=== PATIENT | female | born 1995 | race Caucasian/White ===

== ENCOUNTER 2016-12-09 11:21 | Emergency (ER) | payer OTHER ==
[2016-12-09 11:32] VITALS: BP 106/62
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
--- NOTE | 2016-12-09 12:48 | RAD ---
INDICATION: Left ankle injury. TECHNIQUE: 2 views of the left ankle were obtained. FINDINGS: The bones are in normal alignment. No fracture is seen. Joint spaces appear maintained. IMPRESSION: NO EVIDENCE FOR FRACTURE.
--- NOTE | 2016-12-09 12:48 | RAD ---
INDICATION: Trauma left knee. TECHNIQUE: 2 views of the left knee were obtained. FINDINGS: The bones are normal alignment. No joint effusion or fracture is seen. Joint spaces appear maintained. IMPRESSION: NO EVIDENCE FOR FRACTURE.
--- NOTE | 2016-12-09 12:50 | RAD ---
INDICATION: Left foot injury. TECHNIQUE: 2 views of the left foot were obtained. FINDINGS: The bones are normal alignment. No fracture is seen. Joint spaces appear maintained. IMPRESSION: NO EVIDENCE FOR FRACTURE.
== END 2016-12-09 13:28 | disposition home or self-care (01) ==
LOC: ED 11:21
DX: M79.605 Pain in left leg (principal); F17.210 Nicotine dependence, cigarettes, uncomplicated; W19.XXXA Unspecified fall, initial encounter; Y92.89 Other specified places as the place of occurrence of the external cause; X50.1XXA Overexertion from prolonged static or awkward postures, initial encounter; J45.909 Unspecified asthma, uncomplicated
CPT/HCPCS: 99282

== ENCOUNTER 2017-01-30 10:33 | Emergency (ER) | payer SELFPAY ==
[2017-01-30 11:30] VITALS: BP 119/73
--- NOTE | 2017-01-30 12:31 | RAD ---
INDICATION: Chest pain and cough. COMPARISON: Comparison is made with a prior chest x-ray study from April 22, 2015. TECHNIQUE: Dual-energy PA and lateral views of the chest were obtained. FINDINGS: The heart is within normal limits in size. Mediastinal and hilar contours appear within normal limits. The lungs are clear. No pleural effusion is present. IMPRESSION: NO EVIDENCE FOR ACTIVE CARDIOPULMONARY DISEASE.
--- NOTE | 2017-01-30 13:30 | UC ---
FLU HPI - HPI Summary HPI Summary: SIX DAYS AGO HAD VOMITING COUGH AND FEVER. NOW COUGH CONTINUES. PAIN IN RIBS WITH COUGHING. - History of Current Complaint Chief Complaint: UCRespiratory Stated Complaint: RESP, VOMITING Time Seen by Provider: 01/30/17 11:36 Hx Obtained From: Patient Hx Last Menstrual Period: UNKNOWN Onset/Duration: Gradual Onset, Lasting Days, Still Present Severity Currently: Mild Severity Initially: Moderate Pain Intensity: 0 Pain Scale Used: 0-10 Numeric Associated Signs & Symptoms: Positive: F/C, Myalgia, Cough, Nasal Congestion, Vomiting Related Hx: Possible Flu/Infectious Exposure - Allergy/Home Medications Allergies/Adverse Reactions: Allergies Allergy/AdvReac Type Severity Reaction Status Date / Time LOBSTER Allergy Severe Anaphylatic Uncoded 08/04/12 16:33 Shock Home Medications: Home Medications Gabapentin TAB(NF) [Neurontin 600 mg TAB(NF)] 600 mg PO TID 01/30/17 [History Confirmed 01/30/17] PMH/Surg Hx/FS Hx/Imm Hx Previously Healthy: Yes Endocrine History Of: Denies: Diabetes, Thyroid Disease Cardiovascular History Of: Denies: Cardiac Disorders, Hypertension Respiratory History Of: Reports: Asthma Denies: COPD GI/ History Of: Reports: Ulcer - Surgical History Surgical History: None - Family History Known Family History: Positive: None Negative: Respiratory Disease Family History: R & n/C - Social History Occupation: Unemployed Lives: With Family Alcohol Use: None Substance Use Type: Marijuana Substance Use Comment - Amount & Last Used: last night at 2130 Smoking Status (MU): Heavy Every Day Tobacco Smoker Type: Cigarettes Amount Used/How Often: 1/2 ppd Length of Time of Smoking/Using Tobacco: 3 years Have You Smoked in the Last Year: Yes Cessation Counseling: Counseled 3+Min - 10 Min - Immunization History Most Recent Tetanus Shot: 2008 Vaccination Up to Date: Yes Review of Systems Constitutional: Fever, Chills Skin: Negative Eyes: Negative ENT: Nasal Discharge Respiratory: Cough Cardiovascular: Negative Gastrointestinal: Vomiting Genitourinary: Negative Motor: Negative Neurovascular: Negative Musculoskeletal: Negative Neurological: Negative Psychological: Negative All Other Systems Reviewed And Are Negative: Yes Physical Exam Triage Information Reviewed: Yes Appearance: No Pain Distress, Well-Nourished, Ill-Appearing - MILDLY, Thin Vital Signs: Initial Vital Signs Temp 98.3 F 01/30/17 11:26 Pulse 90 04/20/17 11:26 Resp 16 01/30/17 11:26 BP 119/73 01/30/17 11:26 Pulse Ox 100 01/30/17 11:26 Vital Signs Reviewed: Yes Eye Exam: Normal ENT: Positive: Hearing grossly normal, Pharyngeal erythema, TMs normal Dental Exam: Normal Neck exam: Normal Neck: Positive: Supple, Nontender, No Lymphadenopathy Respiratory Exam: Other - COUGH Respiratory: Positive: Chest non-tender, Lungs clear, Normal breath sounds, No respiratory distress, No accessory muscle use Cardiovascular Exam: Normal Cardiovascular: Positive: RRR, No Murmur, Pulses Normal, Brisk Capillary Refill Abdominal Exam: Normal Musculoskeletal Exam: Normal Musculoskeletal: Positive: Strength Intact, ROM Intact Neurological Exam: Normal Psychological Exam: Normal Skin Exam: Normal Flu Course/Dx - Differential Dx/Diagnosis Differential Diagnosis/HQI/PQRI: Influenza, Upper Respiratory Infection Provider Diagnoses: UPPER RESPIRATORY INFECTION Discharge - Discharge Plan Condition: Stable Disposition: HOME Prescriptions: Benzonatate CAP* [Tessalon 100 MG CAP*] 100 mg PO TID PRN #15 cap PRN Reason: Cough Patient Education Materials: Dehydration (ED), Upper Respiratory Infection (ED) Forms: *Work Release Referrals: Rubén Ibanez MD [Primary Care Provider] -
== END 2017-01-30 12:57 | disposition home or self-care (01) ==
LOC: UCEAST 10:33
DX: J06.9 Acute upper respiratory infection, unspecified (principal); J45.909 Unspecified asthma, uncomplicated; F12.90 Cannabis use, unspecified, uncomplicated; F17.210 Nicotine dependence, cigarettes, uncomplicated; Z91.013 Allergy to seafood
CPT/HCPCS: 71020; 81003; 84702; 87502; 99212; G0463

== ENCOUNTER 2017-02-17 13:29 | Emergency (ER) | payer OTHER ==
[2017-02-17 13:33] VITALS: BP 116/70
--- NOTE | 2017-02-17 15:33 | RAD ---
INDICATION: Left wrist pain. No known trauma COMPARISON: Left hand December 15, 2015 TECHNIQUE: AP, lateral, and oblique views were obtained. FINDINGS: The bony structures, joint spaces, and soft tissues are normal for age. IMPRESSION: NEGATIVE EXAMINATION.
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
== END 2017-02-17 16:46 | disposition home or self-care (01) ==
LOC: ED 13:29
DX: S63.502A Unspecified sprain of left wrist, initial encounter (principal); M25.532 Pain in left wrist; X58.XXXA Exposure to other specified factors, initial encounter; Y93.9 Activity, unspecified; Y92.9 Unspecified place or not applicable; Y99.9 Unspecified external cause status; F17.210 Nicotine dependence, cigarettes, uncomplicated
CPT/HCPCS: 99281

== ENCOUNTER 2017-05-01 18:21 | Emergency (ER) | payer OTHER ==
[2017-05-01 20:38] VITALS: BP 120/70
[2017-05-01 20:45] LABS: Urine Bacteria Absent (Absent); Urine Bilirubin Negative (Negative); Urine Glucose Negative (Negative); Urine Nitrite Negative (Negative)
[2017-05-01] MEDS ORDERED: Ketorolac INJ* 30 MG/ML 1 ML VIAL IM ONE (20:46)
[2017-05-01 20:51] LABS: Hematocrit 32 % (35-47); Hemoglobin 10.6 g/dl (12.0-16.0); Mean Corpuscular HGB Conc 33 g/dl (31-36); Mean Corpuscular Hemoglobin 29 pg (27-31); Mean Corpuscular Volume 90 fL (80-97); Mean Platelet Volume 8 um3 (7.4-10.4); Red Blood Count 3.61 10^6/ul (4.0-5.4); Red Cell Distribution Width 15 % (10.5-15); White Blood Count 9.2 10^3/ul (3.5-10.8)
[2017-05-01 21:06] LABS: Albumin 3.4 g/dL (3.2-5.2); BUN/Creatinine Ratio 17.4 (8-20); C Reactive Protein 78.41 mg/L (< 5.00); Calcium 8.9 mg/dL (8.6-10.3); EGFR African American 138.1 (>60); EGFR Non-African American 107.4 (>60); Globulin 3.2 g/dL (2-4); Potassium 3.6 mmol/L (3.5-5.0); Total Bilirubin 0.4 mg/dL (0.2-1.0); Total Protein 6.6 g/dL (6.4-8.9)
[2017-05-01 21:08] LABS: Troponin I 0.01 ng/mL (<0.04)
[2017-05-01] MEDS ORDERED: DOXYcycline CAP(*) 100 MG PO ONE (21:11)
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
[2017-05-05 09:42] LABS: Lyme Disease IgG Ab WB Negative (Negative)
== END 2017-05-01 21:26 | disposition home or self-care (01) ==
LOC: ED 18:21
DX: M13.872 Other specified arthritis, left ankle and foot (principal); M13.871 Other specified arthritis, right ankle and foot; R51 Headache; F17.210 Nicotine dependence, cigarettes, uncomplicated
CPT/HCPCS: 36415; 80053; 81003; 81015; 83605; 84484; 85025; 85610; 85730; 86140; 86617; 87086; 93005; 96372; 99282; A9270-GY; J1885

== ENCOUNTER 2017-07-01 19:35 | Emergency (ER) | payer OTHER ==
[2017-07-01 20:11] VITALS: BP 104/64
--- NOTE | 2017-07-01 20:37 | UC ---
Skin Complaint HPI - HPI Summary HPI Summary: Patient presents with complaints of an ingrow hair of the right labia, which is several days onset. She has been applying hot compresses, and opening it with a needle and states pus has been draining out of it. She states is it very painful to even light tough. She states she has missed day reporting as a result of it, and would like to have a note for her absence. She states she has not gone since Friday, and would like to have if for the rest of the week. She states she had an ingrown hair before and this is the same, she does shave there as well She states she has a history of MRSA. She denies fever, chills, nausea or vomiting. - History of Current Complaint Chief Complaint: UCGU Time Seen by Provider: 07/01/17 20:12 Stated Complaint: PERSONAL Hx Last Menstrual Period: unknown ?: No Onset/Duration: Gradual Onset, Lasting Days Skin Exposure Onset/Duration: Days Ago Timing: Constant Onset Severity: Severe Current Severity: Severe Location: Discrete, Other - right labia Character: Swelling, Pain, Redness, Raised, Painful Aggravating: Other - warm compresses Alleviating: Heat Associated Signs & Symptoms: Positive: Tenderness, Red Streaks Similar Episode/Dx as: ingrown pubic hair - Allergy/Home Medications Allergies/Adverse Reactions: Allergies Allergy/AdvReac Type Severity Reaction Status Date / Time LOBSTER Allergy Severe Anaphylatic Uncoded 07/01/17 20:11 Shock Review of Systems Skin: Other - ingrown hair on pubis. All Other Systems Reviewed And Are Negative: Yes PMH/Surg Hx/FS Hx/Imm Hx Previously Healthy: Yes Other History Of: Negative For: Anticoagulant Therapy - Surgical History Surgical History: None Surgery Procedure, Year, and Place: denies - Family History Known Family History: Positive: None Negative: Respiratory Disease Family History: R & n/C - Social History Alcohol Use: None Substance Use Type: None Substance Use Comment - Amount & Last Used: last night at 2130 Smoking Status (MU): Current Every Day Smoker Type: Cigarettes Amount Used/How Often: 1/2PPD Length of Time of Smoking/Using Tobacco: 3 years Have You Smoked in the Last Year: Yes - Immunization History Most Recent Tetanus Shot: 2007 Vaccination Up to Date: Yes Physical Exam Triage Information Reviewed: Yes Appearance: Well-Appearing Vital Signs: Initial Vital Signs Temp 98.2 F 07/01/17 20:05 Pulse 108 07/01/17 20:05 Resp 16 07/01/17 20:05 BP 104/64 07/01/17 20:05 Pulse Ox 100 07/01/17 20:05 Vital Signs Reviewed: Yes Eye Exam: Normal ENT Exam: Normal Respiratory Exam: Normal Cardiovascular Exam: Normal Abdominal Exam: Normal Abdomen Description: Positive: Other: - right pubis with 4 cm indurated abscess with flucuance at center, scab at center, eyrthemic, and tender on palpation with surrounding erythema and warmth, palpable right inguinal lymph nodes. Musculoskeletal Exam: Normal Neurological Exam: Normal Skin Exam: Other - see abdomen. Skin: Positive: Other - track herron noted on hands and arms. Course/Dx - Course Course Of Treatment: Patient was seen for pubic abscess that is flucuant, with surrouding cellulitis and lymphadenopy. She has been opening it with a needle, and applying warm compresses with a history of MRSA. She was also seen by Dr. Amaya and we recommend she go to the ER. She was offered ambulance and declined. We discussed with her that we are very concerned she could get more infected (septic) and , she verbalized understading and was competent to make decision. She was discharge against medical advise. - Differential Diagnoses - Skin Complaint Differential Diagnoses: Abscess, Cellulitis - Diagnoses Provider Diagnoses: abscess. cellulitis Discharge - Discharge Plan Condition: Stable Disposition: AGAINST MEDICAL ADVICE Patient Education Materials: Cellulitis (ED), Abscess (ED) Referrals: Rubén Ibanez MD [Primary Care Provider] - Additional Instructions: We are recommending that you go to the ER immediately. We offered transport and the patient states she has transportation. We informed her that she could become septic and .
== END 2017-07-01 20:40 | disposition left against medical advice (07) ==
LOC: UCEAST 19:35
DX: N76.4 Abscess of vulva (principal); N76.2 Acute vulvitis; Z86.14 Personal history of Methicillin resistant Staphylococcus aureus infection; F17.210 Nicotine dependence, cigarettes, uncomplicated
CPT/HCPCS: 99211; G0463

== ENCOUNTER 2017-07-02 10:15 | Emergency (ER) | payer OTHER ==
[2017-07-02] MEDS ORDERED: Sulfamethox/Trimethoprim DS 800/160* TAB PO ONE (10:34)
[2017-07-02] MEDS ORDERED: Ibuprofen TAB* 600 MG PO ONE (10:34)
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
[2017-07-02 11:16] VITALS: BP 110/65
--- NOTE | 2017-07-02 14:08 | ED ---
Progress - Progress Note Progress Note: Pt's prelim wound cx reveals MRSA and Staph Aureus - pt was started on bactrim - no changes at this time. Course/Dx - Diagnoses Provider Diagnoses: Abscess, Cellulitis
--- NOTE | 2017-07-05 08:53 | PN ---
Progress Note - Progress Note Date of Service: 07/02/17 Note: Culture results positive for MRSA and staph. Placed on Bactrim. Bacteria has sensitivity, on final culture results. No further action needed at this time.
== END 2017-07-02 11:15 | disposition home or self-care (01) ==
LOC: ED 10:15
DX: L02.91 Cutaneous abscess, unspecified (principal); L03.90 Cellulitis, unspecified; F17.210 Nicotine dependence, cigarettes, uncomplicated
CPT/HCPCS: 87070; 87077; 87186; 87205; 87640; 87641; 99282; A9270-GY

== ENCOUNTER 2018-03-16 14:38 | Emergency (ER) | payer OTHER ==
[2018-03-16 15:11] VITALS: BP 103/67
--- NOTE | 2018-03-16 15:40 | UC ---
Respiratory Complaint HPI - HPI Summary HPI Summary: 22 yo female with 2 weeks hx of cough (non productive) and intermittent SOB has had f/c past three days seem by provider last week and Rxed a albuterol puffer - History of Current Complaint Chief Complaint: UCGeneralIllness Stated Complaint: CONGESTED Time Seen by Provider: 03/16/18 15:18 Hx Obtained From: Patient Hx Last Menstrual Period: states irregular period Onset/Duration: Sudden Onset, Lasting Weeks - 2 Timing: Constant Severity Initially: Mild Severity Currently: Moderate Pain Intensity: 7 Pain Scale Used: 0-10 Numeric Character: Cough: Nonproductive Aggravating Factors: Nothing Associated Signs And Symptoms: Positive: Dyspnea, Fever, Chills - Allergies/Home Medications Allergies/Adverse Reactions: Allergies Allergy/AdvReac Type Severity Reaction Status Date / Time LOBSTER Allergy Severe Anaphylatic Uncoded 03/16/18 15:02 Shock Home Medications: Home Medications Albuterol HFA INHALER* [Ventolin HFA Inhaler*] 1 puff INH Q4H PRN 03/16/18 [ History Confirmed 03/16/18] PMH/Surg Hx/FS Hx/Imm Hx Previously Healthy: Yes Respiratory History: Asthma, Bronchitis Other History Of: Negative For: Anticoagulant Therapy - Surgical History Surgical History: None Surgery Procedure, Year, and Place: denies - Family History Known Family History: Positive: None, Hypertension Negative: Respiratory Disease Family History: R & n/C - Social History Alcohol Use: None Substance Use Type: None Substance Use Comment - Amount & Last Used: last night at 2130 Smoking Status (MU): Current Every Day Smoker Type: Cigarettes Amount Used/How Often: 1/2PPD Length of Time of Smoking/Using Tobacco: 3 years Have You Smoked in the Last Year: Yes - Immunization History Most Recent Tetanus Shot: 2007 Vaccination Up to Date: Yes Review of Systems Constitutional: Fever, Chills, Fatigue Skin: Negative Eyes: Negative ENT: Sore Throat Respiratory: Cough Cardiovascular: Negative Gastrointestinal: Negative Genitourinary: Negative Motor: Negative Neurovascular: Negative Musculoskeletal: Negative Neurological: Negative Psychological: Negative Is Patient Immunocompromised?: No All Other Systems Reviewed And Are Negative: Yes Physical Exam Triage Information Reviewed: Yes Appearance: Well-Appearing, No Pain Distress, Well-Nourished Vital Signs: Initial Vital Signs Temp 98.3 F 06/04/18 15:03 Pulse 85 03/16/18 15:03 Resp 16 03/16/18 15:03 BP 103/67 03/16/18 15:03 Pulse Ox 99 03/16/18 15:03 Vital Signs Reviewed: Yes Eyes: Positive: Conjunctiva Clear ENT: Positive: Hearing grossly normal, Pharyngeal erythema, Nasal congestion, TMs normal, Tonsillar swelling, Hoarse voice, Uvula midline. Negative: Nasal drainage, TM bulging, TM dull, TM red, Tonsillar exudate, Trismus, Muffled voice , Dental tenderness, Sinus tenderness Neck: Positive: Supple, Nontender, Enlarged Nodes @ - ant cervical Respiratory: Positive: Normal breath sounds, No respiratory distress, No accessory muscle use, Wheezing - with forced expiration. Negative: Respiratory distress Cardiovascular: Positive: RRR, No Murmur Musculoskeletal: Positive: ROM Intact, No Edema Neurological: Positive: Alert Psychological Exam: Normal Skin Exam: Normal UC Diagnostic Evaluation - Laboratory O2 Sat by Pulse Oximetry: 99 - normal/not hypoxic Respiratory Course/Dx - Differential Dx/Diagnosis Provider Diagnoses: acute ronchitis with bronchospasm Discharge - Sign-Out/Discharge Documenting (check all that apply): Discharge/Admit/Transfer - Discharge Plan Condition: Stable Disposition: HOME Prescriptions: Amoxicillin PO (*) [Amoxicillin 875 MG (*)] 875 mg PO BID #20 tab predniSONE [Deltasone 20 MG TAB] 40 mg PO DAILY #10 tab Patient Education Materials: Acute Bronchitis (ED) Forms: *Gen. Provider Communication Referrals: Rubén Ibanez MD [Primary Care Provider] - 4 Days (if not better) Additional Instructions: continue to use your inhaler as directed - Billing Disposition and Condition Condition: STABLE Disposition: Home
== END 2018-03-16 15:40 | disposition home or self-care (01) ==
LOC: UCEAST 14:38
DX: J20.9 Acute bronchitis, unspecified (principal); J45.909 Unspecified asthma, uncomplicated; F17.210 Nicotine dependence, cigarettes, uncomplicated; Z91.013 Allergy to seafood
CPT/HCPCS: 99212; G0463

== ENCOUNTER 2022-03-27 01:35 | Inpatient (IN) ==
[2022-03-27 02:47] LABS: ABS Monocytes 0.3 10^3/ul (0-0.8); ABS Neutrophils 8.2 10^3/ul (1.5-7.7); Eosinophil % 0.1 %; Hematocrit 38 % (35-47); Hemoglobin 12.4 g/dL (12.0-16.0); Lymphocyte % 10.5 %; Mean Corpuscular HGB Conc 33 g/dL (31-36); Mean Corpuscular Hemoglobin 30 pg (27-31); Mean Corpuscular Volume 91 fL (80-97); Platelet Count 227 10^3/uL (150-450); Red Blood Count 4.14 10^6 /uL (3.70-4.87); Red Cell Distribution Width 14 % (10-15); White Blood Count 9.5 10^3/uL (3.5-10.8)
[2022-03-27 03:09] LABS: ALT 23 U/L (7-52); AST 26 U/L (13-39); Acetaminophen < 15 mcg/mL; Albumin 4.4 g/dL (3.2-5.2); Albumin/Globulin Ratio 1.8 (1-3); Alcohol, S < 13 mg/dL (<13); Alkaline Phosphatase 51 U/L (35-149); Anion Gap 13 mmol/L (2-11); Blood Urea Nitrogen 19 mg/dL (6-24); CO2 Carbon Dioxide 20 mmol/L (22-32); Calcium 9.3 mg/dL (8.6-10.3); Chloride 103 mmol/L (101-111); Globulin 2.5 g/dL (2-4); Glucose 72 mg/dL (70-100); Potassium 3.9 mmol/L (3.5-5.0); Salicylate < 2.50 mg/dL (<30); Sodium 136 mmol/L (135-145); Total Protein 6.9 g/dL (6.4-8.9); eGFR CKD-EPI 83.2 (>60)
[2022-03-27 03:23] LABS: TSH Ultra Thyroid Stim Horm 3.14 mcIU/mL (0.34-5.60)
[2022-03-27 04:49] LABS: HCG Pregnancy < 0.60 mIU/mL
[2022-03-27] MEDS ORDERED: Al Hydrox/Mg Hydrox/Simet LIQ 30 ML UDC PO PRN (09:03)
[2022-03-27 10:13] LABS: Urine Appearance Cloudy; Urine Bilirubin Negative (Negative); Urine Blood Negative (Negative); Urine Color Yellow; Urine Glucose Negative (Negative); Urine Ketones 2+ (Negative); Urine Nitrite Negative (Negative); Urine Protein Negative (Negative); Urine Urobilinogen Negative (Negative)
[2022-03-27 10:14] LABS: Urine Bacteria 1+ (Absent); Urine Red Blood Cell Trace(0-2/hpf) (Absent); Urine Squamous Epithelial Cell Present (Absent); Urine White Blood Cell 1+(6-10/hpf) (Absent)
[2022-03-27 10:36] LABS: Urine Benzodiazepine Screen None Detected (None Detect); Urine Cannabinoids Screen Presumptive Positive (None Detect); Urine Opiates Screen None Detected (None Detect)
[2022-03-28 09:20] LABS: Vitamin B12 625 pg/mL (180-914)
[2022-03-28 09:23] LABS: Vitamin D Total 25(OH) 18.1 ng/mL (20-50)
[2022-03-28] MEDS: Buprenorphine 2 mg SL TAB SL SCH ×4 (10:20→21:32)
[2022-03-28] MEDS: Fluticasone NASAL SPRAY 50MCG 16 gm SPRAY BTL INTRANASAL SCH (10:22)
[2022-03-28] MEDS ORDERED: Nicotine GUM 4MG FRUIT FLAVOR PO PRN (15:26)
[2022-03-28] MEDS: Nicotine PATCH 21 MG/24 HR PATCH TRANSDERM SCH (15:34)
[2022-03-28] MEDS ORDERED: Buprenorphine 2 mg SL TAB SL SCH (21:00)
[2022-03-29] MEDS: Buprenorphine 2 mg SL TAB SL SCH (08:41)
[2022-03-29] MEDS: Nicotine PATCH 21 MG/24 HR PATCH TRANSDERM SCH (08:43)
[2022-03-29] MEDS: Fluticasone NASAL SPRAY 50MCG 16 gm SPRAY BTL INTRANASAL SCH (08:43)
[2022-03-29 08:56] VITALS: BP 113/75
[2022-03-29 08:57] LABS: HDL Cholesterol 65.2 mg/dL
== END 2022-03-29 12:40 | disposition home or self-care (01) | DRG 773 ==
LOC: ED 01:35 → EDHOLD 09:03 → BSU 11:51
PROVIDERS: ADMIT Psychiatry & Neurology Psychiatry; ATTEND Psychiatry & Neurology Psychiatry

== ENCOUNTER 2022-11-19 15:40 | Inpatient (IN) ==
[2022-11-19] MEDS ORDERED: Buffered Lidocaine 1% SYRIN 1 ml INTRADERM ONE (17:21)
[2022-11-19] MEDS ORDERED: Lactated Ringers 1000 ml BAG 1,000 ML IV ONE (17:21)
[2022-11-19] MEDS ORDERED: Lactated Ringers 1000 ml BAG 1,000 ML IV SCH ×2 (18:00→21:00)
[2022-11-19] MEDS ORDERED: Magnesium Sulfate OB PREMIX 4 GM/100 ML BAG IV ONE (18:12)
[2022-11-19] MEDS ORDERED: Calcium Gluconate 1 GM/10 ML VIAL (in Pyxis) IV PUSH PRN (18:12)
[2022-11-19] MEDS ORDERED: Ampicillin ADVAN 2 GM in NS 0.9% 100 ml BAG 100 ML IVPB ONE (18:13)
[2022-11-19] MEDS ORDERED: Erythromycin Lactobionate IV 250 MG in NS 0.9% 100 ml BAG 100 ML IVPB ONE (18:13)
[2022-11-19] MEDS ORDERED: ceFOXitin 2 GM IVPREMIX 2 GM/50 ML BAG IVPB ONE (18:40)
[2022-11-19] MEDS ORDERED: Morphine PF AMP (0.5MG/ML) 5 MG/10 ML AMP ONE (18:42)
[2022-11-19] MEDS ORDERED: ceFOXitin 2 GM IVPREMIX 0 GM/0 ML BAG ONE (18:43)
[2022-11-19 18:46] LABS: ABS Lymphocytes 1.9 10^3/ul (1.0-4.8); ABS Monocytes 0.6 10^3/ul (0-0.8); ABS Neutrophils 9.5 10^3/ul (1.5-7.7); Eosinophil % 0.1 %; Hematocrit 36 % (35-47); Hemoglobin 11.4 g/dL (12.0-16.0); Lymphocyte % 15.8 %; Mean Corpuscular HGB Conc 32 g/dL (31-36); Mean Corpuscular Hemoglobin 30 pg (27-31); Mean Corpuscular Volume 93 fL (80-97); Mean Platelet Volume 10.6 fL (7.4-10.4); Platelet Count 172 10^3/uL (150-450); Red Blood Count 3.85 10^6 /uL (3.70-4.87); Red Cell Distribution Width 17 % (10-15)
[2022-11-19 18:50] LABS: Urine Benzodiazepine Screen None Detected (None Detect); Urine Cannabinoids Screen None Detected (None Detect); Urine Opiates Screen None Detected (None Detect)
[2022-11-19] MEDS ORDERED: Sodium Citrate/Citric Acid LIQ 15 ML UDC ONE (18:51)
[2022-11-19] MEDS ORDERED: Ondansetron 4 mg VIAL 2 MG/ML 2 ml VIAL ONE (18:56)
[2022-11-19] MEDS ORDERED: Phenylephrine 40 mcg/mL 10mL (400mcg) SYRINGE ONE (18:57)
[2022-11-19] MEDS ORDERED: Sterile Water for Inj 10 ML ONE (18:58)
[2022-11-19] MEDS ORDERED: Magnesium Sulfate OB PREMIX 40 GM/1,000 ML BAG IVPB SCH (19:00)
[2022-11-19] MEDS ORDERED: Midazolam 2 mg/2 ml VIAL 1 mg/ml 2 ml VIAL (2 mg) ONE (19:34)
[2022-11-19] MEDS ORDERED: Acetaminophen IV 1 GM/100ML 1,000 MG/100 ML BAG IV ONE (19:40)
[2022-11-19] MEDS ORDERED: Prochlorperazine 5 mg/ml 2 ml VIAL (10 mg) IV PRN (19:43)
[2022-11-19] MEDS ORDERED: Naloxone 0.4 mg VIAL 0.4 mg/ml 1 ml VIAL IV PRN (19:43)
[2022-11-19] MEDS ORDERED: Ondansetron 4 mg VIAL 2 MG/ML 2 ml VIAL IV PRN (19:43)
[2022-11-19] MEDS ORDERED: Acetaminophen IV 1 GM/100ML 1,000 MG/100 ML BAG IV PRN (19:49)
[2022-11-19] MEDS ORDERED: Metoclopramide 5 MG/ML VIAL (10 mg) ONE (19:56)
[2022-11-19 20:24] LABS: Urine Appearance Cloudy; Urine Bilirubin Negative (Negative); Urine Blood Negative (Negative); Urine Color Amber; Urine Glucose Negative (Negative); Urine Ketones 2+ (Negative); Urine Nitrite Negative (Negative); Urine Protein 1+(30 mg/dL) (Negative); Urine Specific Gravity 1.024 (1.002-1.030); Urine Urobilinogen Positive (Negative)
[2022-11-19 20:26] LABS: Urine Bacteria Absent (Absent); Urine Red Blood Cell 1+(3-5/hpf) (Absent); Urine Squamous Epithelial Cell Present (Absent); Urine Transitional Epithelial Present (Absent); Urine White Blood Cell Trace(0-5/hpf) (Absent)
[2022-11-19] MEDS ORDERED: Glycerin ADULT 2.4 gm SUPP PR PRN (20:26)
[2022-11-19] MEDS ORDERED: Witch Hazel PAD JAR TOPICAL PRN (20:26)
[2022-11-19 20:37] LABS: Urine Benzodiazepine Screen None Detected (None Detect); Urine Opiates Screen None Detected (None Detect)
[2022-11-19] MEDS ORDERED: Methylergonovine 0.2 mg AMPULE 1 ml AMP IM ONE (21:42)
[2022-11-20 06:55] LABS: ABS Lymphocytes 1.8 10^3/ul (1.0-4.8); ABS Monocytes 0.7 10^3/ul (0-0.8); ABS Neutrophils 7.1 10^3/ul (1.5-7.7); Eosinophil % 0.1 %; Hematocrit 23 % (35-47); Hemoglobin 7.8 g/dL (12.0-16.0); Lymphocyte % 18.8 %; Mean Corpuscular HGB Conc 34 g/dL (31-36); Mean Corpuscular Hemoglobin 31 pg (27-31); Mean Corpuscular Volume 93 fL (80-97); Mean Platelet Volume 10.1 fL (7.4-10.4); Platelet Count 150 10^3/uL (150-450); Red Blood Count 2.51 10^6 /uL (3.70-4.87); Red Cell Distribution Width 17 % (10-15); White Blood Count 9.7 10^3/uL (3.5-10.8)
[2022-11-20] MEDS: Nicotine PATCH 7 MG/24 HR PATCH TRANSDERM SCH (09:19)
[2022-11-21] MEDS: Nicotine PATCH 7 MG/24 HR PATCH TRANSDERM SCH (08:37)
[2022-11-21] MEDS ORDERED: Benzocaine/Menthol LOZ PO PRN (16:02)
[2022-11-22 07:30] VITALS: BP 105/63
[2022-11-22] MEDS: Nicotine PATCH 7 MG/24 HR PATCH TRANSDERM SCH (07:50)
[2022-11-22] MEDS ORDERED: medroxyPROGESTERone ACETATE 150 MG/ML VIAL IM ONE (09:26)
== END 2022-11-22 10:31 | disposition home or self-care (01) | DRG 540 ==
LOC: MCHOBOUT 15:43 → MCHOB 16:57
PROVIDERS: ADMIT Obstetrics & Gynecology; ATTEND Obstetrics & Gynecology

== ENCOUNTER 2023-09-23 21:01 | Observation (INO) ==
[2023-09-23 22:20] LABS: ABS Lymphocytes 1.1 10^3/uL (1.0-4.8); ABS Monocytes 0.3 10^3/uL (0.0-0.9); ABS Neutrophils 5.7 10^3/uL (1.5-7.6); Eosinophil % 0.2 %; Hematocrit 39.2 % (35-45); Hemoglobin 13.3 g/dL (11.5-14.3); Lymphocyte % 14.9 %; Mean Corpuscular Hemoglobin 31.2 pg (27-33); Mean Corpuscular Hgb Conc 33.8 g/dL (31-36); Mean Corpuscular Volume 92.3 fL (80-97); Mean Platelet Volume 7.9 fL (7.5-11.2); Platelet Count 233 10^3/uL (150-450); Red Blood Count 4.25 10^6/uL (3.63-4.92)
[2023-09-23 22:50] LABS: HCG Pregnancy < 0.60 mIU/mL
[2023-09-23 23:20] LABS: ALT 31 U/L (7-52); AST 20 U/L (13-39); Albumin 4.3 g/dL (3.2-5.2); Albumin/Globulin Ratio 1.4 (1-3); Alkaline Phosphatase 64 U/L (35-149); Anion Gap 8 mmol/L (2-16); Blood Urea Nitrogen 14 mg/dL (6-24); CO2 Carbon Dioxide 26 mmol/L (22-32); Calcium 9.3 mg/dL (8.6-10.3); Chloride 104 mmol/L (101-111); Creatinine, Serum 0.78 mg/dL (0.51-0.95); Glucose 108 mg/dL (70-100); Potassium 4.2 mmol/L (3.5-5.0); Sodium 138 mmol/L (135-145); Total Bilirubin 0.3 mg/dL (0.2-1.0); Total Protein 7.3 g/dL (6.4-8.9); eGFR CKD-EPI 106.7 (>60)
[2023-09-24] MEDS ORDERED: Lactated Ringers 1000 ml BAG 1,000 ML IV ONE (02:43)
[2023-09-24] MEDS ORDERED: Ondansetron 4 mg VIAL 2 MG/ML 2 ml VIAL ONE (03:07)
[2023-09-24] MEDS ORDERED: Ondansetron 4 mg VIAL 2 MG/ML 2 ml VIAL IV ONE (03:45)
[2023-09-24 04:32] LABS: Urine Benzodiazepine Screen Presumptive Positive (None Detect); Urine Cannabinoids Screen None Detected (None Detect); Urine Opiates Screen None Detected (None Detect)
[2023-09-24 04:46] LABS: Urine Appearance Turbid; Urine Bilirubin Negative (Negative); Urine Blood Negative (Negative); Urine Color Yellow; Urine Glucose Negative (Negative); Urine Ketones Negative (Negative); Urine Nitrite Negative (Negative); Urine Protein 1+(30 mg/dL) (Negative); Urine Specific Gravity 1.027 (1.002-1.030); Urine Urobilinogen Negative (Negative)
[2023-09-24] MEDS ORDERED: Thiamine 100 MG/ML 2 ml VIAL (200 mg) IV ONE (04:48)
[2023-09-24] MEDS ORDERED: Ondansetron 4 mg VIAL 2 MG/ML 2 ml VIAL IV PRN (04:49)
[2023-09-24 04:51] LABS: Urine Bacteria Absent (Absent); Urine Red Blood Cell 2+(6-10/hpf) (Absent); Urine Squamous Epithelial Cell Present (Absent); Urine White Blood Cell Trace(0-5/hpf) (Absent)
[2023-09-24] MEDS ORDERED: Thiamine IV 100 MG in NS 0.9% 50 ML Q24H IV ONE (06:00)
[2023-09-24 07:43] LABS: ABS Lymphocytes 1.2 10^3/uL (1.0-4.8); ABS Monocytes 0.2 10^3/uL (0.0-0.9); Eosinophil % 0.1 %; Hematocrit 39.1 % (35-45); Hemoglobin 13.1 g/dL (11.5-14.3); Lymphocyte % 18.8 %; Mean Corpuscular Hemoglobin 31.1 pg (27-33); Mean Corpuscular Hgb Conc 33.6 g/dL (31-36); Mean Corpuscular Volume 92.4 fL (80-97); Platelet Count 225 10^3/uL (150-450); Red Blood Count 4.23 10^6/uL (3.63-4.92); White Blood Count 6.5 10^3/uL (3.8-11.8)
[2023-09-24 08:05] LABS: Albumin/Globulin Ratio 1.6 (1-3); Calcium 8.8 mg/dL (8.6-10.3); Creatinine, Serum 0.67 mg/dL (0.51-0.95); Globulin 2.5 g/dL (2-4); Magnesium 1.9 mg/dL (1.9-2.7); Potassium 4.2 mmol/L (3.5-5.0); Total Bilirubin 0.4 mg/dL (0.2-1.0); Total Protein 6.5 g/dL (6.4-8.9); eGFR CKD-EPI 122.8 (>60)
[2023-09-24] MEDS ORDERED: levETIRAcetam IV 1,500 MG in NS 0.9% 100 ml BAG 100 ML IVPB ONE (08:07)
[2023-09-24] MEDS ORDERED: LORazepam 2 mg VIAL 1 ml IV PUSH ONE (08:34)
[2023-09-24] MEDS ORDERED: Lorazepam PYXIS KEY PRN ×2 (08:34→14:42)
[2023-09-24] MEDS ORDERED: levETIRAcetam 1000MG IVPREMIX 1,000 MG/100 ML BAG IVPB ONE (08:50)
[2023-09-24] MEDS ORDERED: LORazepam 2 mg VIAL 1 ml IV PUSH PRN (14:42)
[2023-09-24] MEDS ORDERED: NS 0.9% IV ONE (15:00)
[2023-09-24] MEDS ORDERED: LACOSAMIDE IV ONE (15:00)
[2023-09-24 15:45] VITALS: BP 98/60
== END 2023-09-24 15:45 | disposition short-term general hospital (02) ==
LOC: EDHOLD 21:01 → ED 21:01 → SUATTDRO 09-24 02:32 → EDHOLD 09-24 15:44
PROVIDERS: ADMIT Internal Medicine; ATTEND Internal Medicine